=== PATIENT | female | born 1980 | race American Indian/Alaskan Native ===

== ENCOUNTER 2017-10-25 23:13 | Emergency (ER) | payer OTHER ==
[2017-10-26] MEDS ORDERED: ZOFRAN ODT PO ONE (00:13)
--- NOTE | 2017-10-26 02:39 | Emergency Department Report ---
ED Female HPI - General Chief complaint: Urogenital-Female Stated complaint: ABD PAIN Time Seen by Provider: 10/26/17 01:37 Source: patient Mode of arrival: Ambulatory Limitations: No Limitations - History of Present Illness Initial comments: 37-year-old female presents with complaint of one month of vaginal discharge with slight odor. Patient denies any significant abdominal pain nausea or vomiting fever or chills. States she was diagnosed with bacterial vaginosis a month ago but did not fill prescription due to cost. States she was prescribed Flagyl vaginal gel. Patient is awake alert and oriented 3 not in acute distress. Patient denies any current abdominal pain or pressure. Denies vaginal bleeding. Last menstrual period 09/29/17. Denies any dysuria or increased urinary frequency. States she has white vaginal discharge with fishy odor. Denies any external lesions. MD Complaint: vaginal discharge Onset/Timin -: month(s) Last Menstrual Period: 09/29/17 EDC: 07/06/18 Associated Symptoms: vaginal discharge - Related Data Sexually active: Yes Previous Rx's Medication Instructions Recorded Last Taken Type metroNIDAZOLE [Metronidazole] 500 mg PO BID #14 tablet 10/26/17 Unknown Rx Allergies Allergy/AdvReac Type Severity Reaction Status Date / Time No Known Allergies Allergy Verified 10/26/17 01:45 ED Review of Systems ROS: Stated complaint: ABD PAIN Other details as noted in HPI Constitutional: denies: chills, fever Eyes: denies: eye pain, eye discharge, vision change ENT: denies: ear pain, throat pain Respiratory: denies: cough, shortness of breath, wheezing Cardiovascular: denies: chest pain, palpitations Endocrine: no symptoms reported Gastrointestinal: denies: abdominal pain, nausea, diarrhea Genitourinary: as per HPI, discharge (1 month of whitish vaginal discharge, diagnosed with bacterial vaginosis over 1 month ago). denies: urgency, dysuria Musculoskeletal: denies: back pain, joint swelling, arthralgia Skin: denies: rash, lesions Neurological: denies: headache, weakness, paresthesias Psychiatric: denies: anxiety, depression Hematological/Lymphatic: denies: easy bleeding, easy bruising ED Past Medical Hx - Past Medical History Previous Medical History?: No - Surgical History Past Surgical History?: No - Social History Smoking Status: Never Smoker Substance Use Type: None - Medications Home Medications: Home Medications Medication Instructions Recorded Confirmed Last Taken Type metroNIDAZOLE [Metronidazole] 500 mg PO BID #14 tablet 10/26/17 Unknown Rx ED Physical Exam - General Limitations: No Limitations General appearance: alert, in no apparent distress - Head Head exam: Present: atraumatic, normocephalic - Eye Eye exam: Present: normal appearance, PERRL, EOMI - ENT ENT exam: Present: mucous membranes moist - Neck Neck exam: Present: normal inspection - Respiratory Respiratory exam: Present: normal lung sounds bilaterally. Absent: respiratory distress - Cardiovascular Cardiovascular Exam: Present: regular rate, normal rhythm. Absent: systolic murmur, diastolic murmur, rubs, gallop - GI/Abdominal GI/Abdominal exam: Present: soft, normal bowel sounds - External exam: Present: normal external exam Speculum exam: Present: normal speculum exam, vaginal discharge (whitish vaginal discharge) Bi-manual exam: Present: normal bi-manual exam (no cervical motion tenderness no adnexal tenderness on exam) - Extremities Exam Extremities exam: Present: normal inspection - Back Exam Back exam: Present: normal inspection, full ROM - Neurological Exam Neurological exam: Present: alert, oriented X3, CN II-XII intact, normal gait - Psychiatric Psychiatric exam: Present: normal affect, normal mood - Skin Skin exam: Present: warm, dry, intact, normal color. Absent: rash ED Course Vital Signs 10/26/17 10/26/17 10/26/17 00:06 03:13 03:16 Temperature 98.1 F Pulse Rate 80 74 Respiratory 16 18 Rate Blood Pressure 126/87 Blood Pressure 127/85 [Right] O2 Sat by Pulse 80 L 100 Oximetry ED Medical Decision Making - Medical Decision Making A/P: Bacterial vaginosis 1-symptoms consistent with bacterial vaginosis, wet prep shows many polymorphonucleocytes 2-treat empirically with metronidazole 3-no clinical signs of UTI, urinalysis shows no leukocytes or nitrites not , no clinical signs of PID 4-follow-up with [facility] and primary care Critical care attestation.: If time is entered above; I have spent that time in minutes in the direct care of this critically ill patient, excluding procedure time. ED Disposition Clinical Impression: Bacterial vaginosis Disposition: TO HOME OR SELFCARE Is pt being admited?: No Does the pt Need Aspirin: No Condition: Stable Instructions: Bacterial Vaginosis (ED) Prescriptions: metroNIDAZOLE [Metronidazole] 500 mg PO BID #14 tablet Referrals: PRIMARY CARE, [Primary Care Provider] - 3-5 Days [facility] [Provider Group] - 3-5 Days [facility] [Outside] - 3-5 Days Forms: STI Treatment and Prevention
[2017-10-26 03:01] LABS: Bilirubin,Urine NEG (Negative); Blood,Urine NEG (Negative); Color,Urine Yellow (Yellow); Hyaline Casts,Urine 5 /LPF; Mucus,Urine 3+ /HPF; Nitrite,Urine NEG (Negative); Protein,Urine <15 mg/dL mg/dL (Negative)
[2017-10-26 03:04] LABS: HCG Qualitative,Urine Negative (Negative)
[2017-10-26 03:16] VITALS: BP 127/85
== END 2017-10-26 03:16 | disposition home or self-care (01) ==
LOC: ED 23:13
DX: N76.0 Acute vaginitis (principal); B96.89 Other specified bacterial agents as the cause of diseases classified elsewhere
CPT/HCPCS: 81001; 81025; 87210; 87591; 99284; Q0162